=== PATIENT | male | born 1945 | race Caucasian/White ===

== ENCOUNTER 2017-01-02 11:18 | Inpatient (IN) | payer MEDICARE, OTHER ==
[2017-01-02] MEDS ORDERED: Albuterol-Ipratrop 3 mg / 0.5 (3 ml) UD ONE ×3 (11:48→20:03)
--- NOTE | 2017-01-02 11:52 | C.PDOC ---
History Of Present Illness 71-year-old male, PMHx includes asthma, hypertension, and atrial fibrillation, presents to the emergency department with complaints of a COPD exacerbation that started yesterday. Patient notes no relief with home medications. He is s/ p nebulizer treatment prior to arrival. Patient feels better w/ O2 use, but does not use O2 at home. No fever or any other associated symptoms. Patient was admitted in 09/2016 for same complaint. CO COPD EXAC ONSET YEST. past medical history includes asthma, hypertension, and atrial fibrillation. NO RELIEF W HOME MEDS. S/P NEB [employer]. FEELS BETTER W O2 USE BUT DOES NOT USE O2 @ HOME. NO FEVER, OTHER ASSOC SX. ADMITTED 09/2016 FOR SAME EXAM MILD RESP DIST NONTOXIC LUNGS +TACHYPNEA, SPEAKING FULL SENTENCES B/L EXP WHEEZE GEN MILD DEC BS NO EDEMA IRREG REG TACHY REMAINDER NEG Time Seen by Provider: 01/02/17 11:34 Chief Complaint (Nursing): Shortness Of Breath Past Medical History Vital Signs: Last Vital Signs Temp 97.8 F 01/02/17 14:18 Pulse 91 H 01/02/17 14:18 Resp 20 01/02/17 14:18 BP 136/79 01/02/17 14:18 Pulse Ox 99 01/02/17 14:25 - Medical History PMH: Asthma, Atrial Fibrillation, COPD, HTN - [facility] Procedures VACCINATION NEC (11/15/14) Family History: States: Unknown Family Hx - Social History Hx Tobacco Use: No Hx Alcohol Use: Yes Hx Substance Use: No - Immunization History Hx Tetanus Toxoid Vaccination: No Hx Influenza Vaccination: Yes Hx Pneumococcal Vaccination: No Review Of Systems Except As Marked, All Systems Reviewed And Found Negative. Constitutional: Negative for: Fever, Chills Cardiovascular: Negative for: Chest Pain Respiratory: Positive for: Shortness of Breath Gastrointestinal: Negative for: Vomiting Neurological: Negative for: Weakness, Numbness, Headache, Dizziness Physical Exam - Physical Exam Skin: Warm, Dry, No Rash Head: Atraumatic, Normacephalic Nose: Normal Oral Mucosa: Moist Lips: Normal Appearing Neck: Normal ROM Chest: Symmetrical Cardiovascular: Rhythm Irregular (tachycardia) Respiratory: No Accessory Muscle Use, Other ( +TACHYPNEA, SPEAKING FULL SENTENCES B/L EXP WHEEZE GEN MILD DEC BS) Extremity: Normal ROM, No Pedal Edema Neurological/Psych: Oriented x3 ED Course And Treatment - Laboratory Results Result Diagrams: 01/02/17 12:01 01/02/17 12:01 ECG: Interpreted By Me ECG Rhythm: Atrial Fibrillation ECG Interpretation: Abnormal Rate From EC O2 Sat by Pulse Oximetry: 99 Pulse Ox Interpretation: Normal - Radiology CXR: Interpreted by Me CXR Interpretation: Yes: No Acute Disease Progress - Data Reviewed Data Reviewed: Lab, Diagnostic imaging, EKG, Old records ED OBSERVATION Date of observation admission: 01/02/17 Time of observation admission: 11:45 - Observation admission statement Patient is being placed in observation because:: COPD EXAC; RAPID AFIB - Goals of Observation Goals of observation are:: SX IMPROVE - Progress Note Progress Note: 01/02/17 14:24 STILL CO PERSIST SOB. VSS. 01/02/17 14:25 DR PAZ C/F PMD WILL ADMIT Disposition Counseled Patient/Family Regarding: Studies Performed, Diagnosis - Disposition Disposition: HOSPITALIZED Disposition Time: 14:27 Condition: STABLE - Clinical Impression Clinical Impression: COPD exacerbation - Scribe Statement The provider has reviewed the documentation as recorded by the Romaibaxel Gibbs All medical record entries made by the Scribe were at my direction and personally dictated by me. I have reviewed the chart and agree that the record accurately reflects my personal performance of the history, physical exam, medical decision making, and the department course for this patient. I have also personally directed, reviewed, and agree with the discharge instructions and disposition. Decision To Admit - Pt Status Changed To: Hospital Disposition Of: Observation - . Bed Request Type: Regular Admitting Physician: Tanner Paz Patient Diagnosis: COPD exacerbation
[2017-01-02] MEDS ORDERED: MethylPREDNISolone 40 mg Vial ONE (12:02)
[2017-01-02 12:05] LABS: BASO # 0.1 K/uL (0.0-0.2); EOS # 0.2 K/uL (0.0-0.7); EOS % 2.8 % (0.0-4.0); HEMATOCRIT 37.4 % (35.0-51.0); LYMPH # 1.4 K/uL (1.0-4.3); LYMPH % 15.6 % (20.0-40.0); MEAN CELL VOLUME 97.9 fL (80.0-94.0); MEAN CORPUSCULAR HEMOGLOBIN 32.4 pg (27.0-31.0); MEAN CORPUSCULAR HGB CONC 33.1 g/dL (33.0-37.0); MEAN PLATELET VOLUME 6.9 fL (7.2-11.7); MONO # 0.8 K/uL (0.0-0.8); MONO % 9.5 % (0.0-10.0); RED CELL DISTRIBUTION WIDTH 15.2 % (11.5-14.5); WHITE BLOOD COUNT 8.7 K/uL (4.8-10.8)
[2017-01-02 12:14] LABS: CHLORIDE 98 mmol/L (98-107); POTASSIUM 4.1 mmol/L (3.6-5.2); SODIUM 139 mmol/L (132-148)
[2017-01-02 12:16] LABS: BILIRUBIN,TOTAL 0.7 mg/dL (0.2-1.3); GFR AFRICAN-AMERICAN > 60
[2017-01-02 12:17] LABS: ALB/GLOB RATIO 1.3 (1.0-2.1); ALKALINE PHOSPHATASE 97 U/L (38-126); ALT/SGPT 22 U/L (21-72); AST/SGOT 26 U/L (17-59); BLOOD UREA NITROGEN 15 mg/dL (9-20); CARBON DIOXIDE 29 mmol/L (22-30); GLUCOSE,RANDOM 87 mg/dL (75-110); TOTAL PROTEIN 7.4 g/dL (6.3-8.3)
[2017-01-02 12:18] LABS: CALCIUM 9.1 mg/dl (8.6-10.4)
[2017-01-02] MEDS: Albuterol-Ipratrop 3 mg / 0.5 (3 ml) UD IH SCH ×3 (12:26→12:50)
[2017-01-02] MEDS ORDERED: Aluminum Hydroxide/Magnesium Hydroxide Susp (30 mL) PO PRN (17:39)
[2017-01-02] MEDS: MethylPREDNISolone 40 mg Vial IVP SCH (18:29)
--- NOTE | 2017-01-02 19:13 | RAD ---
PROCEDURE: CHEST RADIOGRAPH, 1 VIEW HISTORY: SOB COMPARISON: Comparison chest 10/06/2016 FINDINGS: LUNGS: Clear. PLEURA: No pneumothorax or pleural fluid seen. CARDIOVASCULAR: Cardiomegaly. OSSEOUS STRUCTURES: Re- demonstrated are ORIF changes left humeral head and neck VISUALIZED UPPER ABDOMEN: Normal. OTHER FINDINGS: None. IMPRESSION: Cardiomegaly. No infiltrate.
[2017-01-02] MEDS ORDERED: cefTRIAXone IV 1 gm in Dextros 50 ML IVPB ONE (20:03)
[2017-01-02] MEDS: Albuterol-Ipratrop 3 mg / 0.5 (3 ml) UD INH PRN (20:05)
[2017-01-03] MEDS: MethylPREDNISolone 40 mg Vial IVP SCH ×5 (00:19→23:51)
[2017-01-03] MEDS: Albuterol-Ipratrop 3 mg / 0.5 (3 ml) UD INH PRN ×3 (01:08→19:51)
[2017-01-03 07:09] LABS: BASO % 0.1 % (0.0-2.0); EOS % 0.1 % (0.0-4.0); HEMATOCRIT 37.2 % (35.0-51.0); LYMPH # 0.6 K/uL (1.0-4.3); LYMPH % 10.1 % (20.0-40.0); MEAN CELL VOLUME 97.2 fL (80.0-94.0); MEAN CORPUSCULAR HEMOGLOBIN 32.1 pg (27.0-31.0); MEAN PLATELET VOLUME 7.7 fL (7.2-11.7); MONO # 0.1 K/uL (0.0-0.8); MONO % 1.7 % (0.0-10.0); NRBC % 0.1 % (0.0-2.0); RED CELL DISTRIBUTION WIDTH 15.2 % (11.5-14.5); WHITE BLOOD COUNT 5.9 K/uL (4.8-10.8)
[2017-01-03 07:59] LABS: ALB/GLOB RATIO 1.3 (1.0-2.1); ALKALINE PHOSPHATASE 78 U/L (38-126); ALT/SGPT 20 U/L (21-72); AST/SGOT 22 U/L (17-59); BILIRUBIN,TOTAL 0.6 mg/dL (0.2-1.3); BLOOD UREA NITROGEN 15 mg/dL (9-20); CALCIUM 8.8 mg/dl (8.6-10.4); CARBON DIOXIDE 27 mmol/L (22-30); CHLORIDE 97 mmol/L (98-107); GFR AFRICAN-AMERICAN > 60; GLUCOSE,RANDOM 152 mg/dL (75-110); POTASSIUM 4.2 mmol/L (3.6-5.2); SODIUM 137 mmol/L (132-148)
[2017-01-03] MEDS: diltiaZEM 240 mg/24 Hours CD Cap PO SCH (09:45)
[2017-01-03] MEDS: Multiple Vitamins Tab PO SCH (09:45)
[2017-01-03] MEDS ORDERED: Promethazine DM 6.25 mg-15 mg/5 ml Syrup PO PRN (14:03)
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
[2017-01-03] MEDS ORDERED: Promethazine/Cod 6.25mg-10mg/5ml Syr UD PO PRN (15:07)
[2017-01-04] MEDS: Albuterol-Ipratrop 3 mg / 0.5 (3 ml) UD INH PRN (01:53)
[2017-01-04] MEDS: MethylPREDNISolone 40 mg Vial IVP SCH ×3 (05:57→21:25)
[2017-01-04 07:25] LABS: BASO % 0.1 % (0.0-2.0); HEMATOCRIT 34.6 % (35.0-51.0); LYMPH # 0.3 K/uL (1.0-4.3); LYMPH % 5.3 % (20.0-40.0); MEAN CELL VOLUME 97.7 fL (80.0-94.0); MEAN CORPUSCULAR HEMOGLOBIN 32.4 pg (27.0-31.0); MEAN CORPUSCULAR HGB CONC 33.2 g/dL (33.0-37.0); MEAN PLATELET VOLUME 7.9 fL (7.2-11.7); MONO # 0.2 K/uL (0.0-0.8); MONO % 3.5 % (0.0-10.0); PLATELET COUNT 248 K/uL (130-400); RED CELL DISTRIBUTION WIDTH 14.9 % (11.5-14.5); WHITE BLOOD COUNT 6.1 K/uL (4.8-10.8)
[2017-01-04 07:47] LABS: CHLORIDE 99 mmol/L (98-107)
[2017-01-04 07:48] LABS: POTASSIUM 4.3 mmol/L (3.6-5.2); SODIUM 136 mmol/L (132-148)
[2017-01-04 07:50] LABS: ALB/GLOB RATIO 1.2 (1.0-2.1); ALKALINE PHOSPHATASE 68 U/L (38-126); ALT/SGPT 20 U/L (21-72); AST/SGOT 16 U/L (17-59); BILIRUBIN,TOTAL 0.5 mg/dL (0.2-1.3); BLOOD UREA NITROGEN 20 mg/dL (9-20); CARBON DIOXIDE 30 mmol/L (22-30); GFR AFRICAN-AMERICAN > 60; TOTAL PROTEIN 6.1 g/dL (6.3-8.3)
[2017-01-04 07:51] LABS: CALCIUM 8.4 mg/dl (8.6-10.4); GLUCOSE,RANDOM 175 mg/dL (75-110)
[2017-01-04 08:53] LABS: NEUTROPHIL 94 % (50-75); TOTAL CELLS COUNTED 100
[2017-01-04] MEDS: Multiple Vitamins Tab PO SCH (11:43)
[2017-01-04] MEDS: diltiaZEM 240 mg/24 Hours CD Cap PO SCH (11:43)
--- NOTE | 2017-01-04 13:53 | CP.PCM.PN ---
Subjective - Date & Time of Evaluation Date of Evaluation: 01/04/17 Time of Evaluation: 13:53 - Subjective Subjective: LESS SOB/WHEEZING CONT CURRENT THERAPY Objective - Vital Signs/Intake and Output Vital Signs (last 24 hours): Temp Pulse Resp BP Pulse Ox 97.4 F L 88 20 106/71 99 01/04/17 09:44 01/04/17 09:44 01/04/17 09:44 01/04/17 09:44 01/04/17 09:44 Intake and Output: 01/04/17 01/04/17 11:59 23:59 Intake Total 50 Balance 50 - Medications Medications: Current Medications Al Hydrox/Mg Hydrox/Simethicone (Maalox 30 Ml) 30 ml PO Q4 PRN PRN Reason: heartburn Albuterol/Ipratropium (Duoneb 3 Mg/0.5 Mg (3 Ml) Ud) 3 ml INH RQ6 PRN PRN Reason: Shortness of Breath Last Admin: 01/04/17 01:53 Dose: 3 ml Dabigatran (Pradaxa) 150 mg PO BID [facility] Last Admin: 01/04/17 11:43 Dose: 150 mg Diltiazem HCl (Cardizem Cd) 240 mg PO DAILY [facility] Last Admin: 01/04/17 11:43 Dose: 240 mg Ceftriaxone Sodium 1 gm/ (Sodium Chloride) 100 mls @ 100 mls/hr IVPB DAILY [facility] Last Admin: 01/04/17 11:43 Dose: 100 mls/hr Lactulose (Enulose) 20 gm PO HS [facility] Last Admin: 01/03/17 21:22 Dose: 20 gm Methylprednisolone (Solu-Medrol) 60 mg IVP Q8H [facility] Montelukast Sodium (Singulair) 10 mg PO HS [facility] Last Admin: 01/03/17 21:22 Dose: 10 mg Multivitamins (Hexavitamin) 1 tab PO DAILY [facility] Last Admin: 01/04/17 11:43 Dose: 1 tab Promethazine HCl/Codeine (Phenergan/Codeine Oral Syrup) 5 ml PO Q6H PRN PRN Reason: Cough - Labs Labs: 01/04/17 07:18 01/04/17 07:18
[2017-01-04] MEDS ORDERED: MethylPREDNISolone 40 mg Vial IVP SCH ×2 (14:00→22:00)
[2017-01-04] MEDS: Albuterol-Ipratrop 3 mg / 0.5 (3 ml) UD INH SCH ×2 (18:19→19:19)
[2017-01-05] MEDS: Albuterol-Ipratrop 3 mg / 0.5 (3 ml) UD INH SCH ×3 (00:26→13:16)
[2017-01-05] MEDS: MethylPREDNISolone 40 mg Vial IVP SCH ×2 (06:11→14:55)
[2017-01-05 07:51] VITALS: BP 129/75; PULSE 113; RESP 18; TEMP 97.5; O2SAT 100
[2017-01-05] MEDS: Multiple Vitamins Tab PO SCH (10:31)
[2017-01-05] MEDS: diltiaZEM 240 mg/24 Hours CD Cap PO SCH (10:31)
--- NOTE | 2017-01-05 12:55 | CP.PCM.PN ---
Objective - Vital Signs/Intake and Output Vital Signs (last 24 hours): Temp Pulse Resp BP Pulse Ox 97.5 F L 113 H 18 129/75 100 01/05/17 07:49 01/05/17 07:49 01/05/17 07:49 01/05/17 07:49 01/05/17 07:49 Intake and Output: 01/05/17 01/05/17 06:59 18:59 Intake Total 300 Balance 300 - Medications Medications: Current Medications Al Hydrox/Mg Hydrox/Simethicone (Maalox 30 Ml) 30 ml PO Q4 PRN PRN Reason: heartburn Albuterol/Ipratropium (Duoneb 3 Mg/0.5 Mg (3 Ml) Ud) 3 ml INH RQ6 [facility] Last Admin: 01/05/17 08:03 Dose: 3 ml Dabigatran (Pradaxa) 150 mg PO BID [facility] Last Admin: 01/05/17 10:31 Dose: 150 mg Diltiazem HCl (Cardizem Cd) 240 mg PO DAILY [facility] Last Admin: 01/05/17 10:31 Dose: 240 mg Ceftriaxone Sodium 1 gm/ (Sodium Chloride) 100 mls @ 100 mls/hr IVPB DAILY [facility] Last Admin: 01/05/17 10:31 Dose: 100 mls/hr Lactulose (Enulose) 20 gm PO HS [facility] Last Admin: 01/04/17 21:25 Dose: 20 gm Methylprednisolone (Solu-Medrol) 40 mg IVP Q8 [facility] Last Admin: 01/05/17 06:11 Dose: 40 mg Montelukast Sodium (Singulair) 10 mg PO HS [facility] Last Admin: 01/04/17 21:25 Dose: 10 mg Multivitamins (Hexavitamin) 1 tab PO DAILY [facility] Last Admin: 01/05/17 10:31 Dose: 1 tab Promethazine HCl/Codeine (Phenergan/Codeine Oral Syrup) 5 ml PO Q6H PRN PRN Reason: Cough
--- NOTE | 2017-01-05 13:11 | CP.PCM.DIS ---
Provider - Provider Date of Admission: 01/04/17 16:38 Attending physician: Tanner Paz MD Time Spent in preparation of Discharge (in minutes): 35 Hospital Course - Lab Results Lab Results: Most Recent Lab Values WBC 6.1 K/uL (4.8-10.8) 01/04/17 07:18 RBC 3.54 Mil/uL (4.40-5.90) L 01/04/17 07:18 Hgb 11.5 g/dL (12.0-18.0) L 01/04/17 07:18 Hct 34.6 % (35.0-51.0) L 01/04/17 07:18 MCV 97.7 fL (80.0-94.0) H 01/04/17 07:18 MCH 32.4 pg (27.0-31.0) H 01/04/17 07:18 MCHC 33.2 g/dL (33.0-37.0) 01/04/17 07:18 RDW 14.9 % (11.5-14.5) H 01/04/17 07:18 Plt Count 248 K/uL (130-400) 01/04/17 07:18 MPV 7.9 fL (7.2-11.7) 01/04/17 07:18 Neut % (Auto) 91.1 % (50.0-75.0) H 01/04/17 07:18 Lymph % (Auto) 5.3 % (20.0-40.0) L 01/04/17 07:18 [place]y % (Auto) 3.5 % (0.0-10.0) 01/04/17 07:18 Eos % (Auto) 0.0 % (0.0-4.0) 01/04/17 07:18 Baso % (Auto) 0.1 % (0.0-2.0) 01/04/17 07:18 Neut # 5.5 K/uL (1.8-7.0) 01/04/17 07:18 Lymph # 0.3 K/uL (1.0-4.3) L 01/04/17 07:18 Storey # 0.2 K/uL (0.0-0.8) 01/04/17 07:18 Eos # 0.0 K/uL (0.0-0.7) 01/04/17 07:18 Baso # 0.0 K/uL (0.0-0.2) 01/04/17 07:18 Neutrophils % (Manual) 94 % (50-75) H 01/04/17 07:18 Lymphocytes % (Manual) 4 % (20-40) L 01/04/17 07:18 Monocytes % (Manual) 2 % (0-10) 01/04/17 07:18 Platelet Estimate Normal (NORMAL) 01/04/17 07:18 Hypochromasia (manual) Slight 01/04/17 07:18 Poikilocytosis (manual Slight 01/04/17 07:18 Anisocytosis (manual) Slight 01/04/17 07:18 Target Cells Slight 01/04/17 07:18 Ovalocytes Slight 01/04/17 07:18 Reagan Cells Slight 01/04/17 07:18 Sodium 136 mmol/L (132-148) 01/04/17 07:18 Potassium 4.3 mmol/L (3.6-5.2) 01/04/17 07:18 Chloride 99 mmol/L (98-107) 01/04/17 07:18 Carbon Dioxide 30 mmol/L (22-30) 01/04/17 07:18 Anion Gap 11 (10-20) 01/04/17 07:18 BUN 20 mg/dL (9-20) 01/04/17 07:18 Creatinine 0.9 MG/DL (0.8-1.5) 01/04/17 07:18 Est GFR ( Amer) > 60 01/04/17 07:18 Est GFR (Non-Af Amer) > 60 01/04/17 07:18 Random Glucose 175 mg/dL (75-110) H 01/04/17 07:18 Calcium 8.4 mg/dl (8.6-10.4) L 01/04/17 07:18 Total Bilirubin 0.5 mg/dL (0.2-1.3) 01/04/17 07:18 AST 16 U/L (17-59) L D 01/04/17 07:18 ALT 20 U/L (21-72) L 01/04/17 07:18 Alkaline Phosphatase 68 U/L (38-126) 01/04/17 07:18 Troponin I 0.0390 ng/mL (0.00-0.120) 01/02/17 12:01 NT-Pro-B Natriuret Pep 785 pg/mL (0-900) 01/02/17 12:01 Total Protein 6.1 g/dL (6.3-8.3) L 01/04/17 07:18 Albumin 3.3 g/dL (3.5-5.0) L 01/04/17 07:18 Globulin 2.8 gm/dL (2.2-3.9) 01/04/17 07:18 Albumin/Globulin Ratio 1.2 (1.0-2.1) 01/04/17 07:18 - Hospital Course Hospital Course: 71-year-old male, PMHx includes asthma, hypertension, and atrial fibrillation, presents to the emergency department with complaints of a COPD exacerbation that started yesterday. Patient notes no relief with home medications. He is s/ p nebulizer treatment prior to arrival. Patient feels better w/ O2 use, but does not use O2 at home THIS WAS A/W YELLOW EXP pt was treated with iv solumedrol and ab pt improved and d/aiyana on prednisone and z pack Discharge Plan - Discharge Medications Prescriptions: predniSONE [Prednisone] 30 mg PO DAILY #25 tab Albuterol HFA [Ventolin HFA 90 mcg/actuation (8 g)] 0.09 mg IH Q6 #1 puff Azithromycin [Z-Wes] 250 mg PO DAILY #6 tab - Follow Up Plan Condition: STABLE Disposition: HOME/ ROUTINE Additional Instructions: Please f/u with Dr. garcia office in 1 week Contiue medication as per Med. REc. Please cone picker medication from pharmacy
== END 2017-01-05 15:26 | disposition home or self-care (01) | DRG 192 ==
LOC: C.ER 11:18 → C.9OBSV 11:45 → C.9E 14:41 → C.5T 18:37 → OBSVTOIN 01-04 16:38
PROVIDERS: ADMIT Internal Medicine Cardiovascular Disease; ATTEND Internal Medicine Cardiovascular Disease
DX: J44.1 Chronic obstructive pulmonary disease with (acute) exacerbation (principal); I48.91 Unspecified atrial fibrillation; I10 Essential (primary) hypertension; J45.909 Unspecified asthma, uncomplicated

== ENCOUNTER 2017-03-09 05:35 | Inpatient (IN) | payer MEDICARE, OTHER ==
--- NOTE | 2017-03-09 05:38 | C.PDOC ---
History Of Present Illness pt with worsening sob over the last 2 days. Speaking in 3-4 word sentences. Received 125 solumedrol, duoneb via ems. Stats he feels slightly better. Pt also complains of some non radiating chest discomfort Time Seen by Provider: 03/09/17 05:38 History Per: Patient, EMS History/Exam Limitations: no limitations Onset/Duration Of Symptoms: Hrs Current Symptoms Are (Timing): Worse Initiating Event: Upper Respiratory Illness Quality: Dull Exacerbating Factor(s): Exertion, Coughing Current Respiratory Medications: See Home Med List Severity: Severe Pain Scale Rating Of: 8 Associated Symptoms: Chest Pain. denies: Fever, Chills, Sweating Reports Recently: Seen In ED, Treated By A Physician Recent travel outside of the [place]: No Additional History Per: EMS Past Medical History Reviewed: Historical Data, Nursing Documentation, Vital Signs Vital Signs: Last Vital Signs Temp 97.5 F L 03/09/17 05:40 Pulse 102 H 03/09/17 05:40 Resp 20 03/09/17 06:11 BP 148/98 H 03/09/17 05:40 Pulse Ox 96 03/09/17 05:40 - Medical History PMH: Asthma, Atrial Fibrillation, COPD, HTN Denies: Chronic Kidney Disease - [facility] Procedures VACCINATION NEC (11/15/14) Family History: States: No Known Family Hx - Social History Hx Tobacco Use: No Hx Alcohol Use: No Hx Substance Use: No - Immunization History Hx Tetanus Toxoid Vaccination: No Hx Influenza Vaccination: Yes Hx Pneumococcal Vaccination: No Review Of Systems Constitutional: Negative for: Fever, Chills Eyes: Negative for: Redness ENT: Negative for: Throat Pain Cardiovascular: Negative for: Chest Pain, Palpitations Respiratory: Positive for: Cough, Shortness of Breath Gastrointestinal: Negative for: Nausea, Vomiting Genitourinary: Negative for: Dysuria Musculoskeletal: Negative for: Back Pain Skin: Negative for: Rash, Lesions, Jaundice Neurological: Negative for: Weakness Psych: Negative for: Anxiety Physical Exam - Physical Exam Appears: In Acute Distress Skin: Warm, Dry Head: Tenderness Eye(s): bilateral: Normal Inspection Oral Mucosa: Dry Throat: No Erythema Neck: Trachea Midline, Supple Chest: Symmetrical Cardiovascular: Rhythm Irregular Gastrointestinal/Abdominal: Soft, No Tenderness, No Distention Back: No CVA Tenderness Extremity: No Tenderness Extremity: Bilateral: Atraumatic, Normal Color And Temperature, Normal ROM Pulses: Left Dorsalis Pedis: Normal, Right Dorsalis Pedis: Normal Neurological/Psych: Oriented x3, Normal Speech, Normal Cognition Gait: Steady ED Course And Treatment - Laboratory Results Result Diagrams: 03/09/17 05:58 03/09/17 05:58 ECG: Interpreted By Me, Viewed By Me ECG Rhythm: Atrial Fibrillation (101), Nonspecific Changes Pulse Ox Interpretation: Normal - Radiology CXR: Interpreted by Me, Viewed By Me CXR Interpretation: Yes: Cardiomegaly, Other (unchanged from 01/16). No: Infiltrates, Fracture, Pnemothorax Progress Note: blood work, nebs, steroids, cxr Disposition Discussed With Dr.: Tanner Paz Comment: accepted the pt on his service and took over the care at 6:45 AM Doctor Will See Patient In The: Hospital Counseled Patient/Family Regarding: Studies Performed, Diagnosis - Disposition Disposition: HOSPITALIZED Disposition Time: 05:38 Condition: FAIR - POA Present On Arrival: Poor Glycemic Control - Clinical Impression Clinical Impression: Dyspnea, Atrial fibrillation, COPD exacerbation Decision To Admit - Pt Status Changed To: Hospital Disposition Of: Inpatient - Admit Certification Admit to Inpatient:: After my assessment, the patient will require hospitalization for at least two midnights. This is because of the severity of symptoms shown, intensity of services needed, and/or the medical risk in this patient being treated as an outpatient. - InPatient: Physician Admission Certification: I certify that this patient requires 2 or more midnights of care for the following reason:: After my assessment, the patient will require hospitalization for at least two midnights. This is because of the severity of symptoms shown, intensity of services needed, and/or the medical risk in this patient being treated as an outpatient. - . Bed Request Type: Regular Admitting Physician: Tanner Paz Patient Diagnosis: Dyspnea, Atrial fibrillation, COPD exacerbation
[2017-03-09 05:39] VITALS: BMI 25.2
[2017-03-09] MEDS ORDERED: Aspirin 325 mg EC Tablets PO STA (05:39)
[2017-03-09] MEDS: Albuterol-Ipratrop 3 mg / 0.5 (3 ml) UD IH SCH ×3 (05:47→06:19)
[2017-03-09] MEDS ORDERED: Albuterol-Ipratrop 3 mg / 0.5 (3 ml) UD ONE (05:48)
[2017-03-09 06:05] LABS: BASO # 0.1 K/uL (0.0-0.2); BASO % 1.3 % (0.0-2.0); EOS # 0.7 K/uL (0.0-0.7); EOS % 6.6 % (0.0-4.0); HEMATOCRIT 40.7 % (35.0-51.0); LYMPH # 1.8 K/uL (1.0-4.3); LYMPH % 16.1 % (20.0-40.0); MEAN CELL VOLUME 94.7 fL (80.0-94.0); MEAN CORPUSCULAR HEMOGLOBIN 32.2 pg (27.0-31.0); MEAN PLATELET VOLUME 7.6 fL (7.2-11.7); MONO # 0.6 K/uL (0.0-0.8); MONO % 5.7 % (0.0-10.0); RED CELL DISTRIBUTION WIDTH 13.3 % (11.5-14.5)
[2017-03-09 06:06] LABS: ABG ALLEN TEST POS; DRAW SITE R RAD
[2017-03-09 06:14] LABS: CHLORIDE 96 mmol/L (98-107); SODIUM 137 mmol/L (132-148)
[2017-03-09 06:16] LABS: GFR AFRICAN-AMERICAN > 60
[2017-03-09] MEDS ORDERED: Aspirin 325 mg EC Tablets PO ONE (06:16)
[2017-03-09 06:17] LABS: ALB/GLOB RATIO 1.1 (1.0-2.1); ALKALINE PHOSPHATASE 118 U/L (38-126); ALT/SGPT 24 U/L (21-72); AST/SGOT 37 U/L (17-59); BILIRUBIN,TOTAL 0.9 mg/dL (0.2-1.3); BLOOD UREA NITROGEN 11 mg/dL (9-20); CARBON DIOXIDE 27 mmol/L (22-30); GLUCOSE,RANDOM 141 mg/dL (75-110); TOTAL PROTEIN 7.3 g/dL (6.3-8.3)
[2017-03-09 06:22] LABS: INR 1.1
[2017-03-09 06:33] LABS: POTASSIUM 4.5 mmol/L (3.6-5.2)
--- NOTE | 2017-03-09 07:48 | RAD ---
PROCEDURE: CHEST RADIOGRAPH, 1 VIEW HISTORY: SOB COMPARISON: 05/27/2016 and 11/07/2015 FINDINGS: LUNGS: No consolidation or stephanie pulmonary edema suggested. A 3 to 4 mm nodular opacity projects over the left lung base is similar to November 2015 a granuloma or a prominent nipple shadow a prominent vessel on end are some considerations. PLEURA: No pneumothorax or pleural fluid seen. CARDIOVASCULAR: Normal. Projection slightly rotated towards the right OSSEOUS STRUCTURES: Thoracic spondylosis. Bold left proximal humeral fracture treated with plate and screws. Some of the screws appear broken similar suggestion previously on 01/02/2017. VISUALIZED UPPER ABDOMEN: Normal. OTHER FINDINGS: None. IMPRESSION: No active disease.
[2017-03-09] MEDS: Albuterol-Ipratrop 3 mg / 0.5 (3 ml) UD INH SCH ×4 (08:25→20:00)
[2017-03-09] MEDS ORDERED: MethylPREDNISolone 40 mg Vial IVP SCH (10:00)
[2017-03-09] MEDS: Enoxaparin 40 mg Syringe SC SCH (10:32)
[2017-03-09] MEDS: diltiaZEM 240 mg/24 Hours CD Cap PO SCH (10:44)
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
[2017-03-09] MEDS: MethylPREDNISolone 40 mg Vial IV SCH ×2 (14:09→21:58)
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
[2017-03-09] MEDS: Budesonide 0.5 mg/2 ml Inhal Susp UD INH SCH (20:00)
[2017-03-10] MEDS: Albuterol-Ipratrop 3 mg / 0.5 (3 ml) UD INH SCH ×7 (01:16→23:59)
[2017-03-10] MEDS: MethylPREDNISolone 40 mg Vial IV SCH ×3 (05:47→21:04)
[2017-03-10 07:03] LABS: ALB/GLOB RATIO 1.3 (1.0-2.1); ALKALINE PHOSPHATASE 92 U/L (38-126); ALT/SGPT 56 U/L (21-72); AST/SGOT 245 U/L (17-59); BILIRUBIN,TOTAL 0.4 mg/dL (0.2-1.3); BLOOD UREA NITROGEN 13 mg/dL (9-20); CALCIUM 9.4 mg/dl (8.6-10.4); CARBON DIOXIDE 29 mmol/L (22-30); CHLORIDE 95 mmol/L (98-107); GFR AFRICAN-AMERICAN > 60; GLUCOSE,RANDOM 152 mg/dL (75-110); POTASSIUM 4.5 mmol/L (3.6-5.2); SODIUM 133 mmol/L (132-148); TOTAL PROTEIN 6.2 g/dL (6.3-8.3)
[2017-03-10 07:25] LABS: BASO % 0.1 % (0.0-2.0); HEMATOCRIT 37.1 % (35.0-51.0); LYMPH # 0.6 K/uL (1.0-4.3); LYMPH % 7.4 % (20.0-40.0); MEAN CELL VOLUME 93.8 fL (80.0-94.0); MEAN CORPUSCULAR HEMOGLOBIN 31.8 pg (27.0-31.0); MEAN CORPUSCULAR HGB CONC 33.9 g/dL (33.0-37.0); MEAN PLATELET VOLUME 8.1 fL (7.2-11.7); MONO # 0.3 K/uL (0.0-0.8); MONO % 4.2 % (0.0-10.0); NRBC % 0.1 % (0.0-2.0); PLATELET COUNT 286 K/uL (130-400); RED CELL DISTRIBUTION WIDTH 13.5 % (11.5-14.5); WHITE BLOOD COUNT 7.8 K/uL (4.8-10.8)
[2017-03-10] MEDS: Tiotropium 18 mcg Cap For Inhalation INH SCH (07:41)
[2017-03-10] MEDS: Budesonide 0.5 mg/2 ml Inhal Susp UD INH SCH ×2 (07:41→20:48)
[2017-03-10 09:00] LABS: EOSINOPHIL 1 % (0-4); NEUTROPHIL 91 % (50-75); TOTAL CELLS COUNTED 100
[2017-03-10] MEDS: Enoxaparin 40 mg Syringe SC SCH (10:31)
[2017-03-10] MEDS: diltiaZEM 240 mg/24 Hours CD Cap PO SCH (10:31)
--- NOTE | 2017-03-10 13:39 | CP.PCM.PN ---
Subjective - Date & Time of Evaluation Date of Evaluation: 03/10/17 Time of Evaluation: 13:38 - Subjective Subjective: CHIEF COMPLAINTS TODAY : SOB UNABLE TO COMPLETE SENTENCES ROS. HEENT : N. Resp : POS cough, wheezing ,pleuritic CP , NO hemoptysis Cardio : No anginal CP, PND, orthopnea, palpitation GI : No abd.pain, n/v ,diarrhea or GI bleeding . 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 Musculoskel : No joint swelling , Derm : No rash Psych : Normal affect. Ext : No swelling ,calf pain PE. Pt. is alert awake in no distress. V.S As noted in the chart Head ,ear nose,throat and eyes : Normal. Neck : Supple with normal carotids. Lungs: ENE POOR AIR ENTRY WITH RONCHI Heart : S1 & S2 normal with S4. No murmur. Abd : Soft non tender with normal bowel sounds. Neuro : Moves all ext. with no localized deficit. Ext : No edema with intact pulses.Non tender calves Derm : No rashes or decubitus ulcer. LABS/RADIOLOGY: ASSESSMENT/PLAN : CONT IV AB/STEROIDS /PUMP/NEB Objective - Vital Signs/Intake and Output Vital Signs (last 24 hours): Temp Pulse Resp BP Pulse Ox 97.5 F L 100 H 20 125/86 100 03/10/17 08:20 03/10/17 08:20 03/10/17 08:20 03/10/17 08:20 03/10/17 08:20 Intake and Output: 03/10/17 03/10/17 11:59 23:59 Intake Total 120 Balance 120 - Medications Medications: Current Medications Albuterol/Ipratropium (Duoneb 3 Mg/0.5 Mg (3 Ml) Ud) 3 ml INH RQ4 [facility] Last Admin: 03/10/17 11:09 Dose: 3 ml Budesonide (Pulmicort Respules) 0.5 mg INH RQ12 [facility] Last Admin: 03/10/17 07:41 Dose: 0.5 mg Diltiazem HCl (Cardizem Cd) 240 mg PO DAILY [facility] Last Admin: 03/10/17 10:31 Dose: 240 mg Enoxaparin Sodium (Lovenox) 40 mg SC DAILY [facility] Last Admin: 03/10/17 10:31 Dose: 40 mg Ceftriaxone Sodium 1 gm/ (Sodium Chloride) 100 mls @ 100 mls/hr IVPB DAILY [facility] Last Admin: 03/10/17 10:31 Dose: 100 mls/hr Lactulose (Enulose) 20 gm PO HS [facility] Last Admin: 03/09/17 21:58 Dose: 20 gm Methylprednisolone (Solu-Medrol) 40 mg IV Q8 [facility] Last Admin: 03/10/17 05:47 Dose: 40 mg Montelukast Sodium (Singulair) 10 mg PO HS [facility] Last Admin: 03/09/17 21:58 Dose: 10 mg Tiotropium [place] (Spiriva) 18 mcg INH RQ24 [facility] Last Admin: 03/10/17 07:41 Dose: 18 mcg - Labs Labs: 03/10/17 06:10 03/10/17 06:10 PT 12.9 SECONDS (9.7-12.2) H 03/09/17 05:58 INR 1.1 03/09/17 05:58 APTT 36 SECONDS (21-34) H 03/09/17 05:58
--- NOTE | 2017-03-10 19:27 | CARD ---
APPROVED REPORT EKG Measurement Heart [id number] <Conclusion> Atrial fibrillation with rapid ventricular response with premature ventricular or aberrantly conducted complexes Low voltage QRS ST & T wave abnormality, consider inferior ischemia Abnormal ECG
[2017-03-11] MEDS: Albuterol-Ipratrop 3 mg / 0.5 (3 ml) UD INH SCH ×5 (03:18→19:08)
[2017-03-11] MEDS: MethylPREDNISolone 40 mg Vial IV SCH ×2 (05:44→13:58)
[2017-03-11 07:32] LABS: HEMATOCRIT 38.5 % (35.0-51.0); LYMPH # 0.3 K/uL (1.0-4.3); LYMPH % 2.6 % (20.0-40.0); MEAN CELL VOLUME 95.3 fL (80.0-94.0); MEAN CORPUSCULAR HEMOGLOBIN 30.9 pg (27.0-31.0); MEAN CORPUSCULAR HGB CONC 32.4 g/dL (33.0-37.0); MONO # 0.8 K/uL (0.0-0.8); MONO % 6.5 % (0.0-10.0); PLATELET COUNT 312 K/uL (130-400); RED CELL DISTRIBUTION WIDTH 13.5 % (11.5-14.5)
[2017-03-11] MEDS: Budesonide 0.5 mg/2 ml Inhal Susp UD INH SCH ×2 (07:39→19:08)
[2017-03-11 07:57] LABS: WHITE BLOOD COUNT 12.7 K/uL (4.8-10.8)
[2017-03-11 08:21] LABS: ALB/GLOB RATIO 1.2 (1.0-2.1); ALKALINE PHOSPHATASE 91 U/L (38-126); ALT/SGPT 53 U/L (21-72); AST/SGOT 153 U/L (17-59); BILIRUBIN,TOTAL 0.4 mg/dL (0.2-1.3); BLOOD UREA NITROGEN 16 mg/dL (9-20); CALCIUM 9.4 mg/dl (8.6-10.4); CARBON DIOXIDE 30 mmol/L (22-30); CHLORIDE 95 mmol/L (98-107); GFR AFRICAN-AMERICAN > 60; GLUCOSE,RANDOM 188 mg/dL (75-110); POTASSIUM 4.8 mmol/L (3.6-5.2); SODIUM 136 mmol/L (132-148); TOTAL PROTEIN 6.6 g/dL (6.3-8.3)
[2017-03-11 09:13] LABS: TOTAL CELLS COUNTED 100
[2017-03-11 09:14] LABS: NEUTROPHIL 91 % (50-75)
[2017-03-11] MEDS: diltiaZEM 240 mg/24 Hours CD Cap PO SCH (09:26)
[2017-03-11] MEDS: Enoxaparin 40 mg Syringe SC SCH (09:27)
[2017-03-11] MEDS: Tiotropium 18 mcg Cap For Inhalation INH SCH (09:40)
--- NOTE | 2017-03-11 13:45 | CP.PCM.PN ---
Subjective - Date & Time of Evaluation Date of Evaluation: 03/11/17 Time of Evaluation: 13:45 - Subjective Subjective: CHIEF COMPLAINTS TODAY : SOB UNABLE TO COMPLETE SENTENCES ROS. HEENT : N. Resp : POS cough, wheezing ,pleuritic CP , NO hemoptysis Cardio : No anginal CP, PND, orthopnea, palpitation GI : No abd.pain, n/v ,diarrhea or GI bleeding . 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 Musculoskel : No joint swelling , Derm : No rash Psych : Normal affect. Ext : No swelling ,calf pain PE. Pt. is alert awake in no distress. V.S As noted in the chart Head ,ear nose,throat and eyes : Normal. Neck : Supple with normal carotids. Lungs: ENE POOR AIR ENTRY WITH RONCHI Heart : S1 & S2 normal with S4. No murmur. Abd : Soft non tender with normal bowel sounds. Neuro : Moves all ext. with no localized deficit. Ext : No edema with intact pulses.Non tender calves Derm : No rashes or decubitus ulcer. LABS/RADIOLOGY: ASSESSMENT/PLAN : CONT IV AB/STEROIDS /PUMP/NEB Objective - Vital Signs/Intake and Output Vital Signs (last 24 hours): Temp Pulse Resp BP Pulse Ox 97.5 F L 99 H 20 113/77 100 03/11/17 08:14 03/11/17 08:14 03/11/17 08:14 03/11/17 08:14 03/11/17 08:14 Intake and Output: 03/11/17 03/11/17 11:59 23:59 Intake Total 240 Balance 240 - Medications Medications: Current Medications Albuterol/Ipratropium (Duoneb 3 Mg/0.5 Mg (3 Ml) Ud) 3 ml INH RQ4 [facility] Last Admin: 03/11/17 11:00 Dose: 3 ml Budesonide (Pulmicort Respules) 0.5 mg INH RQ12 [facility] Last Admin: 03/11/17 07:39 Dose: 0.5 mg Diltiazem HCl (Cardizem Cd) 240 mg PO DAILY [facility] Last Admin: 03/11/17 09:26 Dose: 240 mg Enoxaparin Sodium (Lovenox) 40 mg SC DAILY [facility] Last Admin: 03/11/17 09:27 Dose: 40 mg Ceftriaxone Sodium 1 gm/ (Sodium Chloride) 100 mls @ 100 mls/hr IVPB DAILY [facility] Last Admin: 03/11/17 09:26 Dose: 100 mls/hr Lactulose (Enulose) 20 gm PO HS [facility] Last Admin: 03/10/17 21:04 Dose: 20 gm Methylprednisolone (Solu-Medrol) 40 mg IV Q8 [facility] Last Admin: 03/11/17 05:44 Dose: 40 mg Montelukast Sodium (Singulair) 10 mg PO HS [facility] Last Admin: 03/10/17 21:04 Dose: 10 mg Tiotropium [place] (Spiriva) 18 mcg INH RQ24 [facility] Last Admin: 03/11/17 09:40 Dose: 18 mcg - Labs Labs: 03/11/17 07:12 03/11/17 07:12 PT 12.9 SECONDS (9.7-12.2) H 03/09/17 05:58 INR 1.1 03/09/17 05:58 APTT 36 SECONDS (21-34) H 03/09/17 05:58
--- NOTE | 2017-03-11 13:59 | CP.PCM.PN ---
Subjective - Date & Time of Evaluation Date of Evaluation: 03/11/17 Time of Evaluation: 11:20 - Subjective Subjective: patient seen and examined. Breathing much improved Complaining slight cough Desaturates on exertion Objective - Vital Signs/Intake and Output Vital Signs (last 24 hours): Temp Pulse Resp BP Pulse Ox 97.5 F L 99 H 20 113/77 100 03/11/17 08:14 03/11/17 08:14 03/11/17 08:14 03/11/17 08:14 03/11/17 08:14 Intake and Output: 03/11/17 03/11/17 06:59 18:59 Intake Total 640 Balance 640 - Medications Medications: Current Medications Albuterol/Ipratropium (Duoneb 3 Mg/0.5 Mg (3 Ml) Ud) 3 ml INH RQ4 [facility] Last Admin: 03/11/17 11:00 Dose: 3 ml Budesonide (Pulmicort Respules) 0.5 mg INH RQ12 [facility] Last Admin: 03/11/17 07:39 Dose: 0.5 mg Diltiazem HCl (Cardizem Cd) 240 mg PO DAILY [facility] Last Admin: 03/11/17 09:26 Dose: 240 mg Enoxaparin Sodium (Lovenox) 40 mg SC DAILY [facility] Last Admin: 03/11/17 09:27 Dose: 40 mg Ceftriaxone Sodium 1 gm/ (Sodium Chloride) 100 mls @ 100 mls/hr IVPB DAILY [facility] Last Admin: 03/11/17 09:26 Dose: 100 mls/hr Lactulose (Enulose) 20 gm PO HS [facility] Last Admin: 03/10/17 21:04 Dose: 20 gm Methylprednisolone (Solu-Medrol) 40 mg IV Q8 [facility] Last Admin: 03/11/17 05:44 Dose: 40 mg Montelukast Sodium (Singulair) 10 mg PO HS [facility] Last Admin: 03/10/17 21:04 Dose: 10 mg Tiotropium [place] (Spiriva) 18 mcg INH RQ24 [facility] Last Admin: 03/11/17 09:40 Dose: 18 mcg - Labs Labs: 03/11/17 07:12 03/11/17 07:12 PT 12.9 SECONDS (9.7-12.2) H 03/09/17 05:58 INR 1.1 03/09/17 05:58 APTT 36 SECONDS (21-34) H 03/09/17 05:58 - Constitutional Appears: No Acute Distress - Head Exam Head Exam: ATRAUMATIC, NORMOCEPHALIC - Eye Exam Eye Exam: Normal appearance - ENT Exam ENT Exam: Mucous Membranes Moist - Neck Exam Neck Exam: Normal Inspection - Respiratory Exam Respiratory Exam: Decreased Breath Sounds - Cardiovascular Exam Cardiovascular Exam: REGULAR RHYTHM - GI/Abdominal Exam GI & Abdominal Exam: Soft, Normal Bowel Sounds Assessment and Plan (1) COPD exacerbation Assessment & Plan: continue nebulizer treatment and IV steroids for now ABG room male and on exertion Status: Acute (2) Atrial fibrillation Status: Chronic
[2017-03-12] MEDS: Albuterol-Ipratrop 3 mg / 0.5 (3 ml) UD INH SCH ×6 (00:06→19:47)
[2017-03-12] MEDS: MethylPREDNISolone 40 mg Vial IV SCH ×4 (00:35→21:51)
[2017-03-12 01:34] VITALS: RESP 20
[2017-03-12 07:30] LABS: BASO % 0.1 % (0.0-2.0); HEMATOCRIT 37.2 % (35.0-51.0); LYMPH # 0.3 K/uL (1.0-4.3); LYMPH % 2.5 % (20.0-40.0); MEAN CELL VOLUME 95.8 fL (80.0-94.0); MEAN CORPUSCULAR HEMOGLOBIN 31.8 pg (27.0-31.0); MEAN CORPUSCULAR HGB CONC 33.2 g/dL (33.0-37.0); MONO # 0.7 K/uL (0.0-0.8); MONO % 6.5 % (0.0-10.0); PLATELET COUNT 264 K/uL (130-400); RED CELL DISTRIBUTION WIDTH 13.7 % (11.5-14.5); WHITE BLOOD COUNT 11.3 K/uL (4.8-10.8)
[2017-03-12] MEDS: Budesonide 0.5 mg/2 ml Inhal Susp UD INH SCH ×2 (07:40→19:47)
[2017-03-12 07:44] LABS: CHLORIDE 97 mmol/L (98-107)
[2017-03-12 07:45] LABS: POTASSIUM 4.8 mmol/L (3.6-5.2); SODIUM 135 mmol/L (132-148)
[2017-03-12 07:47] LABS: ALB/GLOB RATIO 1.3 (1.0-2.1); ALKALINE PHOSPHATASE 84 U/L (38-126); AST/SGOT 70 U/L (17-59); BILIRUBIN,TOTAL 0.4 mg/dL (0.2-1.3); CARBON DIOXIDE 30 mmol/L (22-30); GFR AFRICAN-AMERICAN > 60; TOTAL PROTEIN 6.2 g/dL (6.3-8.3)
[2017-03-12 07:48] LABS: ALT/SGPT 54 U/L (21-72); BLOOD UREA NITROGEN 18 mg/dL (9-20); CALCIUM 9.1 mg/dl (8.6-10.4); GLUCOSE,RANDOM 162 mg/dL (75-110)
[2017-03-12] MEDS: Tiotropium 18 mcg Cap For Inhalation INH SCH (10:06)
[2017-03-12] MEDS: diltiaZEM 240 mg/24 Hours CD Cap PO SCH (10:23)
[2017-03-12] MEDS: Enoxaparin 40 mg Syringe SC SCH (10:24)
[2017-03-12 10:26] LABS: NEUTROPHIL 88 % (50-75); TOTAL CELLS COUNTED 100
--- NOTE | 2017-03-12 11:51 | CP.PCM.PN ---
Subjective - Date & Time of Evaluation Date of Evaluation: 03/12/17 Time of Evaluation: 10:20 - Subjective Subjective: Patient seen and examined. Complaining of dyspnea on minimal exertion Still has wheezing Saturation 93% on exertion Objective - Vital Signs/Intake and Output Vital Signs (last 24 hours): Temp Pulse Resp BP Pulse Ox 97.4 F L 106 H 20 109/77 95 03/12/17 08:27 03/12/17 08:27 03/12/17 08:27 03/12/17 08:27 03/12/17 08:27 Intake and Output: 03/12/17 03/12/17 06:59 18:59 Intake Total 460 Balance 460 - Medications Medications: Current Medications Albuterol/Ipratropium (Duoneb 3 Mg/0.5 Mg (3 Ml) Ud) 3 ml INH RQ4 [facility] Last Admin: 03/12/17 07:40 Dose: 3 ml Budesonide (Pulmicort Respules) 0.5 mg INH RQ12 [facility] Last Admin: 03/12/17 07:40 Dose: 0.5 mg Diltiazem HCl (Cardizem Cd) 240 mg PO DAILY [facility] Last Admin: 03/12/17 10:23 Dose: 240 mg Enoxaparin Sodium (Lovenox) 40 mg SC DAILY [facility] Last Admin: 03/12/17 10:24 Dose: 40 mg Ceftriaxone Sodium 1 gm/ (Sodium Chloride) 100 mls @ 100 mls/hr IVPB DAILY [facility] Last Admin: 03/12/17 10:24 Dose: 100 mls/hr Lactulose (Enulose) 20 gm PO HS [facility] Last Admin: 03/11/17 21:17 Dose: 20 gm Methylprednisolone (Solu-Medrol) 40 mg IV Q8 [facility] Last Admin: 03/12/17 05:10 Dose: 40 mg Montelukast Sodium (Singulair) 10 mg PO HS [facility] Last Admin: 03/11/17 21:26 Dose: 10 mg Tiotropium [place] (Spiriva) 18 mcg INH RQ24 [facility] Last Admin: 03/12/17 10:06 Dose: 18 mcg - Labs Labs: 03/12/17 07:09 03/12/17 07:09 PT 12.9 SECONDS (9.7-12.2) H 03/09/17 05:58 INR 1.1 03/09/17 05:58 APTT 36 SECONDS (21-34) H 03/09/17 05:58 - Head Exam Head Exam: ATRAUMATIC, NORMOCEPHALIC - Eye Exam Eye Exam: Normal appearance - ENT Exam ENT Exam: Mucous Membranes Moist - Neck Exam Neck Exam: Normal Inspection - Respiratory Exam Respiratory Exam: Rhonchi - Cardiovascular Exam Cardiovascular Exam: REGULAR RHYTHM - GI/Abdominal Exam GI & Abdominal Exam: Soft, Normal Bowel Sounds Assessment and Plan (1) COPD exacerbation Assessment & Plan: For now continue patient on IV steroids, nebulizer treatment ABG at room air Status: Acute (2) Atrial fibrillation Status: Chronic
--- NOTE | 2017-03-12 13:19 | CP.PCM.PN ---
Subjective - Date & Time of Evaluation Date of Evaluation: 03/12/17 Time of Evaluation: 13:19 - Subjective Subjective: CHIEF COMPLAINTS TODAY : SOB ON MINIMAL EXERTION UNABLE TO COMPLETE SENTENCES ROS. HEENT : N. Resp : POS cough, wheezing ,pleuritic CP , NO hemoptysis Cardio : No anginal CP, PND, orthopnea, palpitation GI : No abd.pain, n/v ,diarrhea or GI bleeding . 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 Musculoskel : No joint swelling , Derm : No rash Psych : Normal affect. Ext : No swelling ,calf pain PE. Pt. is alert awake in no distress. V.S As noted in the chart Head ,ear nose,throat and eyes : Normal. Neck : Supple with normal carotids. Lungs: ENE POOR AIR ENTRY WITH RONCHI Heart : S1 & S2 normal with S4. No murmur. Abd : Soft non tender with normal bowel sounds. Neuro : Moves all ext. with no localized deficit. Ext : No edema with intact pulses.Non tender calves Derm : No rashes or decubitus ulcer. LABS/RADIOLOGY: ASSESSMENT/PLAN : CONT IV AB/STEROIDS /PUMP/NEB Objective - Vital Signs/Intake and Output Vital Signs (last 24 hours): Temp Pulse Resp BP Pulse Ox 97.4 F L 106 H 20 109/77 95 03/12/17 08:27 03/12/17 08:27 03/12/17 08:27 03/12/17 08:27 03/12/17 08:27 Intake and Output: 03/12/17 03/12/17 11:59 23:59 Intake Total 100 Balance 100 - Medications Medications: Current Medications Albuterol/Ipratropium (Duoneb 3 Mg/0.5 Mg (3 Ml) Ud) 3 ml INH RQ4 [facility] Last Admin: 03/12/17 07:40 Dose: 3 ml Budesonide (Pulmicort Respules) 0.5 mg INH RQ12 [facility] Last Admin: 03/12/17 07:40 Dose: 0.5 mg Diltiazem HCl (Cardizem Cd) 240 mg PO DAILY [facility] Last Admin: 03/12/17 10:23 Dose: 240 mg Enoxaparin Sodium (Lovenox) 40 mg SC DAILY [facility] Last Admin: 03/12/17 10:24 Dose: 40 mg Ceftriaxone Sodium 1 gm/ (Sodium Chloride) 100 mls @ 100 mls/hr IVPB DAILY [facility] Last Admin: 03/12/17 10:24 Dose: 100 mls/hr Lactulose (Enulose) 20 gm PO HS [facility] Last Admin: 03/11/17 21:17 Dose: 20 gm Methylprednisolone (Solu-Medrol) 40 mg IV Q8 [facility] Last Admin: 03/12/17 13:14 Dose: 40 mg Montelukast Sodium (Singulair) 10 mg PO HS [facility] Last Admin: 03/11/17 21:26 Dose: 10 mg Tiotropium [place] (Spiriva) 18 mcg INH RQ24 [facility] Last Admin: 03/12/17 10:06 Dose: 18 mcg - Labs Labs: 03/12/17 07:09 03/12/17 07:09 PT 12.9 SECONDS (9.7-12.2) H 03/09/17 05:58 INR 1.1 03/09/17 05:58 APTT 36 SECONDS (21-34) H 03/09/17 05:58
[2017-03-12 14:16] LABS: ABG ALLEN TEST POS; ARTERIAL BLOOD HGB O2 SAT 95.7 % (95.0-98.0); CARBOXYHEMOGLOBIN 1.4 % (0.5-1.5); DRAW SITE LRA; HHB 2.5 % (0.0-5.0); METHEMOGLOBIN 0.4 % (0.0-3.0)
[2017-03-12 16:04] VITALS: O2SAT 98
[2017-03-13] MEDS: Albuterol-Ipratrop 3 mg / 0.5 (3 ml) UD INH SCH ×4 (00:14→07:25)
[2017-03-13 01:42] VITALS: BP 107/78; PULSE 104; TEMP 97.3
[2017-03-13] MEDS: MethylPREDNISolone 40 mg Vial IV SCH (05:14)
[2017-03-13 07:15] LABS: LYMPH # 0.3 K/uL (1.0-4.3); LYMPH % 3.1 % (20.0-40.0); MEAN CELL VOLUME 95.1 fL (80.0-94.0); MEAN CORPUSCULAR HEMOGLOBIN 31.5 pg (27.0-31.0); MEAN CORPUSCULAR HGB CONC 33.1 g/dL (33.0-37.0); MONO # 0.7 K/uL (0.0-0.8); MONO % 7.2 % (0.0-10.0); PLATELET COUNT 246 K/uL (130-400); RED CELL DISTRIBUTION WIDTH 13.1 % (11.5-14.5); WHITE BLOOD COUNT 10.2 K/uL (4.8-10.8)
[2017-03-13] MEDS: Budesonide 0.5 mg/2 ml Inhal Susp UD INH SCH (07:25)
[2017-03-13 07:35] LABS: CHLORIDE 95 mmol/L (98-107)
[2017-03-13 07:36] LABS: POTASSIUM 4.7 mmol/L (3.6-5.2); SODIUM 133 mmol/L (132-148)
[2017-03-13 07:38] LABS: CARBON DIOXIDE 31 mmol/L (22-30); GFR AFRICAN-AMERICAN > 60
[2017-03-13 07:39] LABS: ALB/GLOB RATIO 1.2 (1.0-2.1); ALKALINE PHOSPHATASE 91 U/L (38-126); ALT/SGPT 93 U/L (21-72); AST/SGOT 71 U/L (17-59); BILIRUBIN,TOTAL 0.4 mg/dL (0.2-1.3); BLOOD UREA NITROGEN 21 mg/dL (9-20); CALCIUM 9.6 mg/dl (8.6-10.4); GLUCOSE,RANDOM 168 mg/dL (75-110); TOTAL PROTEIN 6.2 g/dL (6.3-8.3)
[2017-03-13 09:12] LABS: NEUTROPHIL 89 % (50-75); TOTAL CELLS COUNTED 100
[2017-03-13] MEDS: Enoxaparin 40 mg Syringe SC SCH (09:38)
[2017-03-13] MEDS: diltiaZEM 240 mg/24 Hours CD Cap PO SCH (09:38)
[2017-03-13] MEDS ORDERED: Sodium Bicarbonate (8.4%) 50 Meq Syringe ONE (11:44)
--- NOTE | 2017-03-13 11:58 | PCM.ANES ---
Anesthesia Emergent Intubation - Diagnosis Working Diagnosis:: cardiac arrest - Consult Reason for Consult:: emergent endotracheal intubation - Intubation Attempts Previous Number of Intubation Attempts:: 0 - Pre-Intubation Vital Signs Oxygen Delivery Method: Ambu-Bag Level Of Consciousness: Comatose/Unresponsive - Method of Intubation Intubation Method: Oral ETT ETT Size: 8 Lipline@: 23cm Atramatic: Yes - Intubation Devices Ronel Blade Size Used: 3 - Placement Confirmation Breath Sounds Present & Equal Bilaterally: Yes Gurgling Sounds Not Audible at Epigastrum: Yes Positive EtCO2: Yes Portable CXR: Yes Recommendations: Ventilator, Chest X Ray, ABG
--- NOTE | 2017-03-13 12:55 | PCM.RRTMUL ---
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 - Situation [employer]BSPH[employer] MESSAGE BROKER DEVELOPER Responder Arrival Time:: 11:42 Location:: [address] [place] [address] Room Number:: 369A [employer] MESSAGE [employer]OK[employer] DEVELOPER Reason for Call: Change in Mental Status WEBSPHERE MESSAGE BROKER DEVELOPER Called By: RN - IV IV Inserted during WEBSPHERE MESSAGE BROKER DEVELOPER?: Yes IV Fluids Initiated During WEBSPHERE MESSAGE BROKER DEVELOPER?: NS New IV Insertion Tolerance:: Fair - Respiratory Oxygen Delivery Method:: Mask (bag valve mask by RT) - Medication Medications Administered During WEBSPHERE MESSAGE BROKER DEVELOPER :: 8 round of epinephrine, 3 rounds of bicarb, 1 solu medrol CPR started during WEBSPHERE MESSAGE BROKER DEVELOPER?: Yes - Vital Signs Blood Pressure:: 107/78 Pulse Rate:: 104 Respiratory Rate:: 20 Temperature:: 97.3 F - Shanika Coma Scale Coma Scale Eye Opening:: No response Coma Scale Motor:: None Coma Scale Verbal:: No response Coma Scale Total:: 3 - Time WEBSPHERE MESSAGE BROKER DEVELOPER Ended Time WEBSPHERE MESSAGE BROKER DEVELOPER Ended:: 12:29 - Recommendations 5) WEBSPHERE MESSAGE BROKER DEVELOPER Level of Care Recommendations: 6) Notifications: Attending Physician I.Reason for WEBSPHERE MESSAGE BROKER DEVELOPER - A) Acute Change in Patient: Subjective: WEBSPHERE MESSAGE BROKER DEVELOPER was called overhead at 11:42AM to Room 369A. Patient was found in bed unconscious by RN. Patient was found to be unresponsive and without a pulse, hence code blue was called. ACLS protocol was initiated, right femoral central line was place shortly after. Patient's attending Dr. Paz was notified during the code. In total of 8 rounds of epinephrine, 3 rounds of bicarb, and 1 round of solumedrol were given. Venous doppler was used throughout the code to check for pulse. Patient was still unable to reach ROSC after 42 minutes of resuscitation. Patient's family members were notified. - B) Neurological Status Other (Please specify): Unresponsive - C) Respiratory Oxygen Delivery Method: Face Mask @% - Constitutional Appears: Chronically Ill - Head Head Exam: ATRAUMATIC, NORMAL INSPECTION - Respiratory Exam Additional comments: absent lung sound - Cardiovascular Exam Cardiovascular Exam: absent: REGULAR RHYTHM, +S1, +S2 - GI/Abdominal Exam GI & Abdominal Exam: Distended - Neurological Exam Additional exam: unresponsive - Extremities Exam Additional comments: cold to the touch Plan - B. Assessment of Findings&Treatment Plan Patient at the end of code blue at 12:29
--- NOTE | 2017-03-13 13:17 | CP.PCM.PN ---
Subjective - Date & Time of Evaluation Date of Evaluation: 03/13/17 Time of Evaluation: 13:11 - Subjective Subjective: SWITCH BOX INSTALLER IN NURSES STATION WHEN SYD CUELLO CALLED HEMODIALYSIS TECHNICIAN FOR THE PT. SWITCH BOX INSTALLER ARRIVED IN PT'S ROOM IMMEDIATELY FOR ASSESSMENT AND CP JORGE WAS PRESENT; PT WAS LAYING HORIZONTAL IN BED WITH HEAD AND LEGS DANGLING OFF BOTH SIDES OF THE BED AND APPEARED UNRESPONSIVE. PT'S POSITION IN BED READJUSTED AND DR. CORTEZ ARRIVED DURING THIS TIME. PT FOUND WAS UNRESPONSIVE WITHOUT A PULSE (CHECKED BY DR. CORTEZ AND SWITCH BOX INSTALLER). COMPRESSIONS STARTED AT THIS TIME AND CODE BLUE CALLED. SEE CODE BLUE NOTE BY COMMUNITY RELATIONS MANAGER DR. CASTILLO AND FURTHER NOTES BY DR. CORTEZ FOR FURTHER INTERVENTIONS. DURING CODE BLUE, ORDERS FOR LABS ENTERED BY SWITCH BOX INSTALLER. NO FURTHER ORDERS BY SWITCH BOX INSTALLER. ATTENDING NOTIFIED BY DR. CORTEZ OF SITUATION. Objective - Vital Signs/Intake and Output Vital Signs (last 24 hours): Temp Pulse Resp BP Pulse Ox 97.3 F L 104 H 20 107/78 98 03/13/17 12:58 03/13/17 12:58 03/13/17 12:58 03/13/17 12:58 03/13/17 01:41 Intake and Output: 03/13/17 03/13/17 06:59 18:59 Intake Total 375 Balance 375 - Medications Medications: Current Medications Albuterol/Ipratropium (Duoneb 3 Mg/0.5 Mg (3 Ml) Ud) 3 ml INH RQ4 NANETTE Last Admin: 03/13/17 07:25 Dose: 3 ml Budesonide (Pulmicort Respules) 0.5 mg INH RQ12 NANETTE Last Admin: 03/13/17 07:25 Dose: 0.5 mg Diltiazem HCl (Cardizem Cd) 240 mg PO DAILY NANETTE Last Admin: 03/13/17 09:38 Dose: 240 mg Enoxaparin Sodium (Lovenox) 40 mg SC DAILY [facility] Last Admin: 03/13/17 09:38 Dose: 40 mg Ceftriaxone Sodium 1 gm/ (Sodium Chloride) 100 mls @ 100 mls/hr IVPB DAILY [facility] Last Admin: 03/13/17 09:38 Dose: 100 mls/hr Lactulose (Enulose) 20 gm PO HS [facility] Last Admin: 03/12/17 21:50 Dose: 20 gm Methylprednisolone (Solu-Medrol) 40 mg IV Q8 NANETTE Last Admin: 03/13/17 05:14 Dose: 40 mg Montelukast Sodium (Singulair) 10 mg PO HS [facility] Last Admin: 03/12/17 21:51 Dose: 10 mg Tiotropium Almyra (Spiriva) 18 mcg INH RQ24 [facility] Last Admin: 03/12/17 10:06 Dose: 18 mcg - Labs Labs: 03/13/17 07:04 03/13/17 07:04 PT 12.9 SECONDS (9.7-12.2) H 03/09/17 05:58 INR 1.1 03/09/17 05:58 APTT 36 SECONDS (21-34) H 03/09/17 05:58
--- NOTE | 2017-03-13 15:53 | CP.PCM.PRO ---
Pronouncement of Note - Clinical Findings Physical Exam: No Response Verbal/Painful Stimuli, Absent Peripheral Pulses{ Carotid & Femoral}, Absent Heart & Breath Sounds, No Pupillary Light Reflex, No Corneal Reflex, Pupils Fixed & Dilated, Absence of Vital Signs - Pronouncement Time Time of Pronouncement of : 12:29 - Notifications Pronouncement Notifications: Family Notified, Atending Notified Directory Assistance Operator Notified: No - Autopsy Autopsy Requested: No [place] [id number]
--- NOTE | 2017-03-15 14:15 | CP.PCM.DIS ---
Provider - Provider Date of Admission: 03/09/17 06:42 Attending physician: Tanner Paz MD Time Spent in preparation of Discharge (in minutes): 30 Hospital Course - Lab Results Lab Results: Most Recent Lab Values WBC 10.2 K/uL (4.8-10.8) 03/13/17 07:04 RBC 3.89 Mil/uL (4.40-5.90) L 03/13/17 07:04 Hgb 12.2 g/dL (12.0-18.0) 03/13/17 07:04 Hct 37.0 % (35.0-51.0) 03/13/17 07:04 MCV 95.1 fL (80.0-94.0) H 03/13/17 07:04 MCH 31.5 pg (27.0-31.0) H 03/13/17 07:04 MCHC 33.1 g/dL (33.0-37.0) 03/13/17 07:04 RDW 13.1 % (11.5-14.5) 03/13/17 07:04 Plt Count 246 K/uL (130-400) 03/13/17 07:04 MPV 8.0 fL (7.2-11.7) 03/13/17 07:04 Neut % (Auto) 89.7 % (50.0-75.0) H 03/13/17 07:04 Lymph % (Auto) 3.1 % (20.0-40.0) L 03/13/17 07:04 [place] % (Auto) 7.2 % (0.0-10.0) 03/13/17 07:04 Eos % (Auto) 0.0 % (0.0-4.0) 03/13/17 07:04 Baso % (Auto) 0.0 % (0.0-2.0) 03/13/17 07:04 Neut # 9.2 K/uL (1.8-7.0) H 03/13/17 07:04 Lymph # 0.3 K/uL (1.0-4.3) L 03/13/17 07:04 [place] # 0.7 K/uL (0.0-0.8) 03/13/17 07:04 Eos # 0.0 K/uL (0.0-0.7) 03/13/17 07:04 Baso # 0.0 K/uL (0.0-0.2) 03/13/17 07:04 Neutrophils % (Manual) 89 % (50-75) H 03/13/17 07:04 Band Neutrophils % 3 % (0-2) H 03/12/17 07:09 Lymphocytes % (Manual) 5 % (20-40) L 03/13/17 07:04 Monocytes % (Manual) 6 % (0-10) 03/13/17 07:04 Eosinophils % (Manual) 1 % (0-4) 03/10/17 06:10 Platelet Estimate Normal (NORMAL) 03/13/17 07:04 RBC Morphology Normal 03/13/17 07:04 PT 12.9 SECONDS (9.7-12.2) H 03/09/17 05:58 INR 1.1 03/09/17 05:58 APTT 36 SECONDS (21-34) H 03/09/17 05:58 Puncture Site Lra 03/12/17 14:13 pCO2 39 mm/Hg (35-45) 03/12/17 14:13 pO2 71 mm/Hg (80-100) L 03/12/17 14:13 HCO3 27.8 mmol/L (21-28) 03/12/17 14:13 ABG pH 7.46 (7.35-7.45) H 03/12/17 14:13 ABG Total CO2 28.9 mmol/L (22-28) H 03/12/17 14:13 ABG O2 Saturation 97.5 % (95-98) 03/12/17 14:13 ABG Base Excess 3.7 mmol/L (-2.0-3.0) H 03/12/17 14:13 ABG Hemoglobin 11.7 g/dL (11.7-17.4) 03/12/17 14:13 ABG Carboxyhemoglobin 1.4 % (0.5-1.5) 03/12/17 14:13 POC ABG HHb (Measured) 2.5 % (0.0-5.0) 03/12/17 14:13 ABG Methemoglobin 0.4 % (0.0-3.0) 03/12/17 14:13 Bird Test Pos 03/12/17 14:13 ABG Potassium 3.8 mmol/L (3.6-5.2) 03/09/17 06:02 A-a O2 Difference 30.0 mm/Hg 03/12/17 14:13 Respiratory Index 0.4 03/12/17 14:13 Hgb O2 Saturation 95.7 % (95.0-98.0) 03/12/17 14:13 Sodium 136.0 mmol/l (132-148) 03/09/17 06:02 Chloride 103.0 mmol/L (98-107) 03/09/17 06:02 Glucose 150 mg/dl (75-110) H 03/09/17 06:02 Lactate 0.8 mmol/L (0.7-2.1) 03/09/17 06:02 Liter Flow 5.0 03/09/17 06:02 FiO2 21.0 % 03/12/17 14:13 Sodium 133 mmol/L (132-148) 03/13/17 07:04 Potassium 4.7 mmol/L (3.6-5.2) 03/13/17 07:04 Chloride 95 mmol/L (98-107) L 03/13/17 07:04 Carbon Dioxide 31 mmol/L (22-30) H 03/13/17 07:04 Anion Gap 12 (10-20) 03/13/17 07:04 BUN 21 mg/dL (9-20) H 03/13/17 07:04 Creatinine 0.9 MG/DL (0.8-1.5) 03/13/17 07:04 Est GFR ( Amer) > 60 03/13/17 07:04 Est GFR (Non-Af Amer) > 60 03/13/17 07:04 Random Glucose 168 mg/dL (75-110) H 03/13/17 07:04 Calcium 9.6 mg/dl (8.6-10.4) 03/13/17 07:04 Total Bilirubin 0.4 mg/dL (0.2-1.3) 03/13/17 07:04 AST 71 U/L (17-59) H 03/13/17 07:04 ALT 93 U/L (21-72) H D 03/13/17 07:04 Alkaline Phosphatase 91 U/L (38-126) 03/13/17 07:04 Troponin I 0.0900 ng/mL (0.00-0.120) 03/09/17 05:58 NT-Pro-B Natriuret Pep 490 pg/mL (0-900) 03/09/17 05:58 Total Protein 6.2 g/dL (6.3-8.3) L 03/13/17 07:04 Albumin 3.4 g/dL (3.5-5.0) L 03/13/17 07:04 Globulin 2.8 gm/dL (2.2-3.9) 03/13/17 07:04 Albumin/Globulin Ratio 1.2 (1.0-2.1) 03/13/17 07:04 Arterial Blood Potassium 3.8 mmol/L (3.6-5.2) 03/09/17 06:02 - Hospital Course Hospital Course: LAST 2 DAYS C/O SOB/WHEEZING AND COUGH WITH YELLOW EXPECTORATION . PT WAS GIVEN COPD TREATMENT IN ER WITH MINIMAL IMPROVEMENT . PT ADMITTED FOR FURTHER TREATMENT PAST HIST. COPD/A. FIB/HTN PULM CONSULTED PT. HAD PFT DONE FRW DAYS AGO , SEVERE COPD PT WAS TREATED WITH IV STEROIDS/NEB/AB PT IMPROVED ON ABOVE MEDS PT WAS WALKING THE HALLWAYS WITH MINIMAL EXERTION STEROIDS WERE TAPERED PT WAS FOUND UNRESPONSIVE IN THE BED AFTER ? LAST ENCOUNTER [place] RN 40 MIN PT WAS RESUSCITATED AND CONTINOUS TO BE IN [place] FAMILY WAS INFORMED AND PT WAS PRONOUNCED BY RESIDENTS Discharge Exam - Head Exam Head Exam: ATRAUMATIC, NORMAL INSPECTION Discharge Plan - Follow Up Plan Condition: FAIR Disposition: WITH WITHOUT AUTOPSY
--- NOTE | 2017-03-15 20:15 | PCM.SURG1 ---
Surgeon's Initial Post Op Note - Surgeon's Notes Surgeon: Dr. Pantoja Associate Professor Of Chemistry: None Pre-Operative Diagnosis: Cardiac arrest Operative Findings: Cardiac arrest Post-Operative Diagnosis: Cardiac arrest Operation Performed: Patient developed cardiac arrest. Immediately JOSE TIM was called. CPR started. Cardiopulmonary resuscitation continued, venous access was obtained by inserting TLC in the right femoral region. After 45 minutes of effective CPR patient did not regain any cardiac activity are pulses. Patient was seen mostly asystolic, as the patient did not regain any pulse, he was pronounced . Family was called, and they were in the bedside. PMD was informed by hospitalist. Specimen/Specimens Removed: none Estimated Blood Loss: EBL {In ML}: 0 Date of Surgery/Procedure: 03/13/17 Time of Surgery/Procedure: 17:30
== END 2017-03-13 12:45 | DRG 190 ==
LOC: C.ER 05:35 → C.3T 06:42
PROVIDERS: ADMIT Internal Medicine Cardiovascular Disease; ATTEND Internal Medicine Cardiovascular Disease
PROC: 0BH17EZ Insertion of Endotracheal Airway into Trachea, Via Natural or Artificial Opening (ICD-10-PCS; principal; 2017-03-13)
DX: J44.1 Chronic obstructive pulmonary disease with (acute) exacerbation (principal); R40.20 Unspecified coma; I46.9 Cardiac arrest, cause unspecified; I48.91 Unspecified atrial fibrillation; J45.909 Unspecified asthma, uncomplicated; I10 Essential (primary) hypertension; Z91.19 Patient's noncompliance with other medical treatment and regimen